=== PATIENT | female | born 1985 | race Caucasian/White ===

== ENCOUNTER 2017-06-28 17:34 | Emergency (ER) | payer MEDICAID ==
[~2017-06-28] VITALS: Ht 170.2 cm; Wt 90.0 kg
[2017-06-28 17:35] VITALS: BP 133/80; PULSE 69; RESP 18; TEMP 98.5; O2SAT 98
--- NOTE | 2017-06-28 17:56 | PD ---
HPI Chief Complaint: Oral / Dental Pain or Problem Time Seen by Provider: 17:51 Travel History International Travel<30 days: No Contact w/Intl Traveler<30days: No Traveled to known affect area: No History of Present Illness HPI 31-year-old female presents to the emergency room for evaluation of right lower dental pain for the past 4 days. Pain radiates into her ear and forehead. Patient states she has some swelling as well. She denies any drainage. She does not have a dentist in the area because she just moved here. She has been taking Tylenol more than recommended without any relief in symptoms. Denies fever, chills, nausea, vomiting. She denies chronic medical conditions or daily medications. She smokes cigarettes. [facility] Social History Tobacco Use: No Allergies-Medications (Allergen,Severity, Reaction): Coded Allergies: No Known Allergies (Unverified , 06/28/17) Review of Systems Except as stated in HPI: all other systems reviewed are Neg Physical Exam Narrative GENERAL: Well-nourished, well-developed female in no acute distress. Afebrile. Ambulatory. SKIN: Focused skin assessment warm/dry. HEAD: Normocephalic. EYES: No scleral icterus. No injection or drainage. NECK: Supple, trachea midline. No JVD or lymphadenopathy. DENTAL: No loose or chipped teeth. No malocclusion. Mild decay throughout. Tooth #29 is tender to palpation. No surrounding erythema, edema, or drainage. CARDIOVASCULAR: Regular rate and rhythm without murmurs, gallops, or rubs. RESPIRATORY: Breath sounds equal bilaterally. No accessory muscle use. Data Data Last Documented VS Vital Signs Date Time Temp Pulse Resp B/P (MAP) Pulse Ox O2 Delivery O2 Flow Rate FiO2 06/28/17 17:35 98.5 69 18 133/80 (97) 98 Room Air MDM Medical Decision Making Medical Screen Exam Complete: Yes Emergency Medical Condition: Yes Medical Record Reviewed: Yes Differential Diagnosis Dentalgia, dental abscess, dental infection Narrative Course 31-year-old female presents to the emergency room for evaluation of right lower dental pain and subjective swelling for the past 4 days. Denies systemic signs of infection. Patient is afebrile well-appearing in the emergency room. Physical exam is unremarkable. There is tenderness to palpation of tooth #29 without any surrounding erythema, edema, drainage, or abscess. No facial edema noted. She'll be treated empirically for developing abscess with penicillin. Told to follow-up with a dentist this week or return for worsening symptoms. She understands and agrees to plan. Diagnosis Primary Impression: Dentalgia Referrals: Primary Care Physician Additional Instructions: Rest and drink plenty of fluids. Peridex oral rinse as directed. Penicillin as directed, until gone. Ibuprofen as directed, as needed for pain. Do not take more than directed. Follow-up with a dentist. Return to the emergency room for worsening symptoms. Med/Other Pt SpecificInfo: Prescription(s) given Disposition: 01 DISCHARGE HOME Condition: Stable Ann Ace Jun 28, 2017 17:56
[2017-06-28] MEDS ORDERED: IBUP800T23 PO (17:57)
[2017-06-28] MEDS ORDERED: PENI500T PO (17:57)
[2017-06-28] MEDS ORDERED: PERI0.126 SWISH-SPIT (17:57)
== END 2017-06-28 18:02 | disposition home or self-care (01) ==
LOC: NEPK 17:34
DX: K08.89 Other specified disorders of teeth and supporting structures (principal)
CPT/HCPCS: 99283

== ENCOUNTER 2017-10-14 12:38 | Emergency (ER) | payer MEDICAID ==
[~2017-10-14] VITALS: Ht 170.2 cm; Wt 97.5 kg
[~2017-10-14 12:38] MED LIST: IBUP1TAB7 PO; PENI500T PO; PERI0.126 SWISH-SPIT
[2017-10-14 12:39] VITALS: BP 141/75; PULSE 80; RESP 16; TEMP 98.4; O2SAT 99
--- NOTE | 2017-10-14 18:26 | PD ---
Physical Exam Date Seen by Provider: Oct 14, 2017 Time Seen by Provider: 13:50 Narrative 31-year-old female presents to the emergency department for evaluation of vaginal discomfort that started yesterday. She states that she found her ex- boyfriend cheating on her recently. She reports pain currently is 4/10. Data Data Last Documented VS Vital Signs Date Time Temp Pulse Resp B/P (MAP) Pulse Ox O2 Delivery O2 Flow Rate FiO2 10/14/17 12:39 98.4 80 16 141/75 (97) 99 Room Air Orders Orders Urinalysis - C+S If Indicated (10/14/17 12:51) Ed Urine Pregnancytest Poc (10/14/17 12:51) [facility] Supervised Visit with LYN: No Narrative Course 31-year-old female presents to the emergency department for evaluation of vaginal discomfort. Patient is initially seen in triage. She left AGAINST MEDICAL ADVICE before she be moved to medical bed. Diagnosis Primary Impression: Left against medical advice Disposition: 07 AGAINST MEDICAL ADVICE Windy Infante Oct 14, 2017 18:26
== END 2017-10-14 18:32 | disposition left against medical advice (07) ==
LOC: NED 12:38
DX: Z53.21 Procedure and treatment not carried out due to patient leaving prior to being seen by health care provider (principal)
CPT/HCPCS: 99281